=== PATIENT | female | born 1940 | race Caucasian/White ===

== ENCOUNTER → 2019-08-17 | Outpatient (CLI) | payer MEDICARE ==
[~2019-08-17] MED LIST: CHOL2000 PO; LISI1TAB23 PO; METO50TA82 PO; REGADENOSON 0.4 MG/5 ML SYRINGE ONE; RIVA20TA PO; VIT1TABL34 PO
== END | disposition home or self-care (01) ==
LOC: CFH 12:02
PROVIDERS: ATTEND Internal Medicine Cardiovascular Disease
DX: I49.3 Ventricular premature depolarization (principal); I34.0 Nonrheumatic mitral (valve) insufficiency
CPT/HCPCS: 78452; 93017; A9502; J2785